=== PATIENT | female | born 2000 | race Caucasian/White ===

== ENCOUNTER 2025-03-21 06:09 | Emergency (ER) | payer MEDICAID ==
[~2025-03-21] VITALS: Ht 165.1 cm; Wt 65.0 kg
[2025-03-21 06:28] VITALS: TEMP 98.1; O2SAT 99
[2025-03-21 07:30] LABS: CREATININE 0.94 MG/DL (0.40-0.90); PRO BRAIN NATRIURETIC PEPTIDE 34 PG/ML (0-125); TOTAL CARBON DIOXIDE 27.4 MMOL/L (24-32); eCRCL 83 ML/MIN; eGFR 73 ML/MIN
[2025-03-21] MEDS: normal saline 1000ml 1,000 ML IV ONE (07:31)
[2025-03-21 07:49] LABS: MEAN PLATELET VOLUME 8.4 FL (7.4-10.4); RED CELL DISTRIBUTION WIDTH 12.9 % (11.5-14.5)
[2025-03-21 07:56] VITALS: BP 112/58; PULSE 55; RESP 9
[2025-03-21 08:02] LABS: URINE HCG NEGATIVE (NEG)
[2025-03-21 08:08] LABS: URINE AMPHETAMINE SCREEN NEGATIVE (Neg); URINE BARBITUATE SCREEN NEGATIVE (Neg); URINE BENZODIAZEPINES SCREEN NEGATIVE (Neg); URINE CANNABINOID SCREEN POSITIVE (Neg); URINE COCAINE SCREEN NEGATIVE (Neg); URINE METHADONE SCREEN POSITIVE (Neg); URINE OPIATE SCREEN NEGATIVE (Neg); URINE PHENCYCLIDINE SCREEN NEGATIVE (Neg)
[2025-03-21 08:14] LABS: LEUKOCYTE ESTERASE ,URINE LARGE (Neg); NITRITES, URINE NEGATIVE (Neg); OCCULT BLOOD,URINE NEGATIVE (Neg)
--- NOTE | 2025-03-21 08:14 | Physician Documentation ---
History of Present Illness General Chief Complaint: Abdominal Pain w/vomiting Stated Complaint: VOMITING Time Seen by MD: 07:43 Mode of Arrival: Ambulatory History of Present Illness Initial Comments The patient is a 24-year-old female with a history of seizures diagnosed in [place] where she moved from recently. She reports that her insurance transfers not complete and she is not currently taking her regular medications, which consist of lamotrigine and clonazepam. She is not certain of the doses. She reports that she had a seizure last night. Medication Reconciliation Allergies: Coded Allergies: No Known Allergies (Unverified , 03/21/25) Review of Systems ROS Constitutional: Denies chills, fatigue, fever, weight gain or weight loss. HEENT: Denies hearing loss, sinus pressure or visual changes. Respiratory: Denies cough, shortness of breath or wheezing. Cardiovascular: Denies chest pain, pain while walking (claudication), edema or palpitations. Gastrointestinal: Denies abdominal pain, blood in stool, constipation, diarrhea, heartburn, loss of appetite, nausea or vomiting. Genitourinary: Denies painful urination (dysuria), excessive amount of urine (polyuria) or urinary frequency. Metabolic/Endocrine: Denies cold intolerance, heat intolerance, excessive thirst (polydipsia) or excessive hunger (polyphagia). Neurological: Seizures and panic attacks. Psychiatric: Denies anxiety or depression. Integumentary: Denies breast discharge, breast lump, hives, mole change(s), rash or skin lesion. Musculoskeletal: Denies back pain, joint pain, joint swelling or neck pain. Hematologic: Denies easily bleeding, easily bruises, lymphedema or issues with blood clots. Immunologic: Denies food allergies or seasonal allergies. Physical Exam Physical Exam Vital Signs: Temperature: 98.1, Heart Rate: 55, Respiratory Rate: 9, BP: 112/58, Pulse Oximetry: 99, Weight: 65.000 Oxygen Flow Rate: 0 Physical Exam Physical Exam Vitals and nursing note reviewed. Constitutional: General: Patient is awake, alert, oriented x 4 in no acute distress and well appearing. Speech is clear and lucid. Appearance: Normal appearance. Patient is not ill-appearing, toxic-appearing or diaphoretic. HENT: Head: Normocephalic and atraumatic. Mouth/Throat: Mouth: Mucous membranes are moist. Pharynx: Oropharynx is clear. Eyes: General: No scleral icterus. Extraocular Movements: Extraocular movements intact. Pupils: Pupils are equal, round, and reactive to light. Neck: Supple, no Kernig or Brudzinski sign. Cardiovascular: Rate and Rhythm: Normal rate and regular rhythm. Heart sounds: No murmur heard. Pulmonary: Effort: No respiratory distress. Breath sounds: No wheezing, rhonchi or rales. Abdominal: General: There is no distension. Palpations: There is no fluid wave, hepatomegaly or mass. Tenderness: There is no abdominal tenderness. There is no guarding. Musculoskeletal: General: No swelling or deformity. Skin: Coloration: Skin is not jaundiced. Findings: No erythema or rash. Neurological: Mental Status: Patient is alert. Progress Results/Orders Results/Orders Orders - JOSE CAGLE MD Normal Saline 1000ml (0.9% Sodium Chlori (03/21/25 07:30) Urinalysis, Cult If Indicated (03/21/25 07:27) Completed Orders - JOSE CAGLE MD Lorazepam Inj (Ativan Inj) (03/21/25 07:30) Medications Received in ER Medications (Trade) Dose Ordered Sig/Fernandez Route PRN Reason Start Time Stop Time Status Last Admin Dose Admin Sodium Chloride 1,000 ml @ 1,000 mls/hr ONCE ONCE IV 03/21/25 07:30 03/21/25 08:29 03/21/25 07:31 1,000 MLS/HR (Ativan inj) 1 mg ONCE ONCE IV 03/21/25 07:30 03/21/25 07:31 DC 03/21/25 07:33 1 MG Vital Signs 03/21/25 03/21/25 03/21/25 03/21/25 06:28 07:15 07:33 07:56 Temp 98.1 Pulse 74 55 Resp 22 16 9 B/P (MAP) 101/49 112/58 (76) Pulse Ox 99 O2 Flow Rate 0 Laboratory Tests Test 03/21/25 06:31 03/21/25 07:32 03/21/25 07:45 White Blood Count 7.5 Red Blood Count 4.30 Hemoglobin 13.7 Hematocrit 39.8 Mean Corpuscular Volume 92.4 Mean Corpuscular Hemoglobin 31.8 H Mean Corpuscular Hemoglobin Concent 34.4 Red Cell Distribution Width 12.9 Platelet Count 248 Mean Platelet Volume 8.4 Neutrophils (%) (Auto) 73.0 Lymphocytes (%) (Auto) 18.8 L Monocytes (%) (Auto) 5.7 Eosinophils (%) (Auto) 2.3 Basophils (%) (Auto) 0.2 Neutrophils # (Auto) 5.5 Lymphocytes # (Auto) 1.4 Monocytes # (Auto) 0.4 Eosinophils # (Auto) 0.2 Basophils # (Auto) 0.0 CBC Comment Sodium Level 137 Potassium Level 3.8 Chloride Level 104 Carbon Dioxide Level 27.4 Anion Gap 6 L Blood Urea Nitrogen 9 Creatinine 0.94 H Estimated GFR/1.73 m2 73 BUN/Creatinine Ratio 9.6 L Glucose Level 123 H Calcium Level 8.7 Total Bilirubin 0.2 Aspartate Amino Transf (AST/SGOT) 19 Alanine Aminotransferase (ALT/SGPT) 25 Alkaline Phosphatase 146 H Troponin I High Sensitivity < 4 L Troponin I High Sens Percent Delta Troponin I Hi Sens Absolute Change Pro-B-Type Natriuretic Peptide 34 Total Protein 7.2 Albumin 3.7 Globulin 3.5 Albumin/Globulin Ratio 1.1 Lipase 23 Chemistry Comments Urine HCG, Qualitative Negative Urine Comment Drug Screen Comment Medical Decision Making Findings This patient reports that she has been taking clonazepam for several years PRN and lamotrigine for about two months. I am going to prescribe lamotrigine 25 mg b.i.d. and clonazepam 0.5 mg, 10 tablets. I have encouraged her to establish care locally. Departure Disposition: HOME / SELF CARE / HOMELESS Impression: Primary Impression: Medication refill Condition: Stable Additional Instructions: It is important to see your doctor or primary care provider. Emergency care may be incomplete without proper follow-up. Symptoms sometimes change or new symptoms might arise after you leave the emergency department. It is important that you call your doctor if you become worse in any way, or return to the emergency department. You are strongly urged to follow-up with your physician to assure complete and thorough care. Please call your doctor's office today, and informed them that you were seen in the emergency department, and that you need to be seen immediately for close follow-up. If you do not have a primary care doctor we encourage you to proactively seek a local physician for close follow-up. Consider local clinics, free clinics, or local [facility]. Prior to discharge we spoke at length concerning symptoms that would merit reevaluation, but please return to the emergency department for any symptoms that are concerning to you, and we will be happy to continue your evaluation and treatment. Please note you can always return to the emergency department if you are having difficulty coordinating close follow-up. If medications were prescribed, you should fill them at your local pharmacy immediately and take only as prescribed. Bring your new medications to your doctors follow-up visit to discuss any changes that would be necessary. Please check [facility] [employer] for any results you did not receive in the Emergency Department: often we are unable to get all your tests back before you leave, and these tests need to be reviewed by your PCP and yourself. You can also call Medical Records if you are unable to access the internet to see [facility]. Return to the emergency department immediately for worsening chest pain, difficulty breathing, sweating, or other concerning emergent symptoms. Referrals: NO PRIMARY CARE PROVIDER (PCP) Prescriptions Clonazepam (Clonazepam) 0.5 Mg Tablet 1 TABLET PO BID, #15 TABLET 0 Refills Prov: JOSE CAGLE MD 03/21/25 Lamotrigine (Lamotrigine ER) 50 Mg Tab.er.24 1 TAB PO DAILY for 30 Days, #30 TAB 0 Refills Prov: JOSE CAGLE MD 03/21/25 Education Educated: Patient Educated regarding: diagnosis, treatment, need for follow up Signature Scribe Signature: . Attestation: . JOSE CAGLE MD Mar 21, 2025 08:13
[2025-03-21 08:21] LABS: UA COLLECTION TYPE CLN CATCH MIDSTREAM
[2025-03-21 08:22] LABS: SQUAMOUS EPITHELIAL CELL,UR FEW /LPF (FEW)
[2025-03-21] MEDS ORDERED: CLON-565 PO (08:23)
[2025-03-21] MEDS ORDERED: LAMO50TA3 PO (08:23)
--- NOTE | 2025-03-21 13:07 | ELECTROCARDIOGRAPH REPORT ---
[facility] Test Date: 2025-03-21 Test Time: 06:49:10 Pat Name: CASPER KELLOGG Department: EMERGENCY ROOM Room: Gender: F [employer]: KENDELL : 2000 Requested By: JOSE CAGLE Order Number: [id number] Reading MD: Measurements Intervals [place] Rate: 79 P: 47 OK: 141 QRS: 66 QRSD: 80 T: 52 QT: 460 QTc: 528 Interpretive Statements Sinus rhythm RSR' in V1 or V2, probably normal variant Prolonged QT interval Please click the below link to view image of tracing.
== END 2025-03-21 08:37 | disposition home or self-care (01) ==
LOC: ER 06:09
DX: R56.9 Unspecified convulsions (principal); Z76.0 Encounter for issue of repeat prescription; R06.02 Shortness of breath; Z79.899 Other long term (current) drug therapy
CPT/HCPCS: 36415; 80053; 80305; 81001; 81025; 83690; 83880; 84484; 85025; 87088; 93005; 96361; 96374; 99284; J2060; J7030

== ENCOUNTER 2025-04-07 10:07 | Emergency (ER) | payer MEDICAID ==
[~2025-04-07] VITALS: Ht 152.4 cm; Wt 59.1 kg
[~2025-04-07 10:07] MED LIST: CLON-565 PO; LAMO50TA3 PO
[2025-04-07 10:08] VITALS: BP 105/69; PULSE 71; O2SAT 98
--- NOTE | 2025-04-07 10:36 | Physician Documentation ---
History of Present Illness ~ Chief Complaint: Anxiety Stated Complaint: ANXIETY Time Seen by MD: 10:21 HPI 24-year-old female presents to the ED with a complaint of anxiety. She says she is out of her clonazepam parents states she is also a methadone patient.. Was seen here in the ED recently and prescribed methadone. She states she is from [place] has not establish with health insurance Denies any HI or SI She also reports recreationally using nitrous oxide last night Day of Onset: Apr 07, 2025 Medication Reconciliation Allergies: Coded Allergies: No Known Allergies (Unverified , 04/07/25) Scheduled Clonazepam (Clonazepam), 1 TABLET PO BID Lamotrigine (Lamotrigine ER), 1 TAB PO DAILY Scheduled PRN Clonazepam (Klonopin), 1 TAB PO ONCE PRN for anxiety Review of Systems All Other Systems at this time: Reviewed and Negative ROS As stated above in the HPI, otherwise all systems are reviewed and negative. Physical Exam Vital Signs: Temperature: 98.6, Heart Rate: 71, Respiratory Rate: 18, BP: 105/69, Pulse Oximetry: 98, Weight: 59.090 Oxygen Flow Rate: 0 Physical Exam General: Alert, no apparent distress. Neurologic: Oriented x4. Psychiatric: Anxious appearing Skin: Normal color, warm and dry. No edema, no ecchymosis. Progress Results/Orders Results/Orders Completed Orders - SCOOBY SANDOVAL [employer] Diazepam Inj (Valium Inj) (04/07/25 10:30) Clonidine Tablet (Catapres Tablet) (04/07/25 10:50) Drug Screen, Urine (04/07/25 11:05) Medications Received in ER Medications (Trade) Dose Ordered Sig/Fernandez Route PRN Reason Start Time Stop Time Status Last Admin Dose Admin (Catapres tablet) 0.1 mg ONCE ONCE PO 04/07/25 10:50 04/07/25 10:51 DC 04/07/25 11:32 0.1 MG Vital Signs 04/07/25 04/07/25 04/07/25 10:08 10:47 11:36 Temp 98.6 98.6 Pulse 71 Resp 18 16 B/P (MAP) 105/69 Pulse Ox 98 O2 Flow Rate 0 Laboratory Tests Test 04/07/25 10:18 Urine Opiates Screen Negative Urine Methadone Screen Positive Urine Fentanyl Screen Negative Urine Barbiturates Screen Negative Urine Phencyclidine Screen Negative Urine Amphetamines Screen Negative Urine Benzodiazepines Screen Negative Urine Cocaine Screen Negative Urine Cannabinoids Screen Positive Drug Screen Comment Medical Decision Making Findings This 24-year-old female receive an IM injection of Valium reported improved symptoms I also gave her some clonidine as I suspect there may be an element of opiate withdrawal in her presentation today. Establish with the care provider in order to obtain ongoing prescription of clonazepam. Provided her with the appropriate resources including the local clinics who are accepting patient Differential Dx:Considerations: Include: Alcohol abuse, Anxiety, Bipolar disorder, Conversion disorder, Depression, Encephaloathy, Homicidal, Panic d isorder, Personality disorder, Schizophrenia, Substance abuse, Suicidal, Other Departure Disposition: HOME / SELF CARE / HOMELESS Impression: Primary Impression: Anxiety Condition: Stable Discharge Instructions: Panic Attack Additional Instructions: you currently have Medical insurance and are able to establish care with local clinics police utilize the resources that I provided to today Referrals: NO PRIMARY CARE PROVIDER (PCP) Prescriptions Clonazepam (Klonopin) 0.5 Mg Tablet 1 TAB PO ONCE PRN for anxiety for 1 Day, #1 TAB 0 Refills Prov: SCOOBY SANDOVAL NP 04/07/25 Education Educated: Patient Educated regarding: diagnosis Signature Scribe Signature: f Attestation: Scribed for Scooby Sandoval Shoder Filler by Scooby Leiva NP . 04/07/25 18:40 SCOOBY SANDOVAL NP Apr 07, 2025 10:36
[2025-04-07 10:47] VITALS: RESP 16
[2025-04-07] MEDS: diazepam inj 5 MG/ML inj. IM ONE (10:47)
[2025-04-07] MEDS ORDERED: CLON-850 PO (11:21)
[2025-04-07 11:36] VITALS: TEMP 98.6
[2025-04-07 11:54] LABS: URINE AMPHETAMINE SCREEN NEGATIVE (Neg); URINE BARBITUATE SCREEN NEGATIVE (Neg); URINE BENZODIAZEPINES SCREEN NEGATIVE (Neg); URINE CANNABINOID SCREEN POSITIVE (Neg); URINE COCAINE SCREEN NEGATIVE (Neg); URINE METHADONE SCREEN POSITIVE (Neg); URINE OPIATE SCREEN NEGATIVE (Neg); URINE PHENCYCLIDINE SCREEN NEGATIVE (Neg)
[2025-04-08] MEDS ORDERED: HYDR-3717 PO (11:55)
== END 2025-04-07 11:41 | disposition home or self-care (01) ==
LOC: ER 10:08
DX: F41.9 Anxiety disorder, unspecified (principal); Z79.899 Other long term (current) drug therapy
CPT/HCPCS: 80305; 96372; 99283; J3360

== ENCOUNTER 2025-04-08 10:26 | Emergency (ER) | payer MEDICAID ==
[~2025-04-08] VITALS: Ht 152.4 cm; Wt 61.0 kg
[~2025-04-08 10:26] MED LIST changes: +CLON-850 PO
--- NOTE | 2025-04-08 10:46 | Physician Documentation ---
History of Present Illness ~ Chief Complaint: Anxiety Stated Complaint: RECHECK Time Seen by MD: 10:39 HPI presents with restlessness and panic after using whippets. She denies any chest pain or shortness of breath. Medication Reconciliation Allergies: Coded Allergies: No Known Allergies (Unverified , 04/08/25) Scheduled Clonazepam (Clonazepam), 1 TABLET PO BID Hydroxyzine Hcl* (Atarax*), 1 TAB PO Q12H Lamotrigine (Lamotrigine ER), 1 TAB PO DAILY Scheduled PRN Clonazepam (Klonopin), 1 TAB PO ONCE PRN for anxiety Review of Systems All Other Systems at this time: Reviewed and Negative Constitutional: Denies: fever Respiratory: Denies: cough, shortness of breath Cardiovascular: Denies: chest pain Gastrointestinal: Denies: abdominal pain, nausea, vomiting Physical Exam Vital Signs: Temperature: 97.7, Source: Temporal, Heart Rate: 84, Respiratory Rate: 24, BP: 108/70, Pulse Oximetry: 99, Weight: 61.000 Oxygen Flow Rate: 0 Physical Exam anxious, purposeful shaking head atraumatic neck no jvd neuro awake alert oriented intact speech, intact strength, gait chestbreathing comfortably no distress skin warm well perfused psych good judgement and insight no si or hi Progress Results/Orders Results/Orders Completed Orders - OREN TOPETE MD Diazepam Tablet (Valium Tablet) (04/08/25 11:40) Vital Signs 04/08/25 04/08/25 04/08/25 10:28 11:45 12:46 Temp 97.7 97.9 Pulse 84 79 Resp 24 18 17 B/P (MAP) 108/70 119/72 Pulse Ox 99 99 O2 Flow Rate 0 Departure Disposition: 01 HOME / SELF CARE / HOMELESS Impression: Primary Impression: Anxiety attack Additional Impression Text Barriers to care substance use disorder This is a patient presenting for anxiety. She has multiple reasons to be anxious including the of her sibling by suicide few months ago. She is also using lipids as well as has history of substance use disorder and feels like she is withdrawing from fentanyl. She is also on methadone in his hoping to transition to Suboxone. Her exam today is not concerning for any acute findi ngs nor suicidal ideation. Discharge Instructions: Panic Attack Referrals: NO PRIMARY CARE PROVIDER (PCP) Prescriptions Hydroxyzine Hcl* (Atarax*) 10 Mg Tablet 1 TAB PO Q12H for anxiety for 30 Days, #60 TAB Prov: OREN TOPETE MD 04/08/25 Signature Scribe Signature: doreen Attestation: OREN Dutton MD Apr 08, 2025 10:46
[2025-04-08] MEDS ORDERED: HYDR-3717 PO (11:55)
[2025-04-08 12:46] VITALS: BP 119/72; PULSE 79; RESP 17; TEMP 97.9; O2SAT 99
== END 2025-04-08 12:49 | disposition home or self-care (01) ==
LOC: ER 10:26
DX: F41.0 Panic disorder [episodic paroxysmal anxiety] (principal)
CPT/HCPCS: 99283

== ENCOUNTER 2025-04-10 14:59 | Emergency (ER) | payer MEDICAID ==
[~2025-04-10] VITALS: Ht 152.4 cm; Wt 120.0 kg
[~2025-04-10 14:59] MED LIST changes: +HYDR-3717 PO
[2025-04-10 15:16] VITALS: BP 121/56; PULSE 73; RESP 18; TEMP 97.7; O2SAT 98
--- NOTE | 2025-04-10 15:28 | Physician Documentation ---
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 Medication Reconciliation Allergies: Coded Allergies: No Known Allergies (Unverified , 04/10/25) Scheduled Clonazepam (Clonazepam), 1 TABLET PO BID Hydroxyzine Hcl* (Atarax*), 1 TAB PO Q12H Lamotrigine (Lamotrigine ER), 1 TAB PO DAILY Scheduled PRN Clonazepam (Klonopin), 1 TAB PO ONCE PRN for anxiety Past Medical History Past Medical History: Anxiety Review of Systems ROS As stated above in the HPI, otherwise all systems are reviewed and negative. Physical Exam Vital Signs: Temperature: 97.7, Source: Temporal, Heart Rate: 73, Respiratory Rate: 18, BP: 121/56, Pulse Oximetry: 98, Weight: 120.000 Physical Exam VITALS: Reviewed and as above. GENERAL: Alert, nontoxic appearing, no apparent distress. RESPIRATORY: No increased work of breathing, no respiratory distress, speaking in full clear sentences PSYCH: Anxious appearing, stating no SI or HI Progress Results/Orders Results/Orders Vital Signs 04/10/25 15:16 Temp 97.7 Pulse 73 Resp 18 B/P (MAP) 121/56 Pulse Ox 98 Medical Decision Making Findings MSE performed in triage and patient returned to ED lobby by nursing staff to await available ED room Differential Dx:Considerations: Include: Alcohol abuse, Anxiety, Bipolar disorder, Conversion disorder, Depression, Homicidal, Panic disorder, Personality disorder, Schizophrenia, Substance abuse, Suicidal Departure Disposition: LEFT AWOL/ELOPED Impression: Primary Impression: Anxiety Referrals: NO PRIMARY CARE PROVIDER (PCP) Signature Scribe Signature: No Scribe Attestation: The note accurately reflects work and decisions made by me.RIAN Fermin 04/11/25 11:17 PIA MACHADO Apr 10, 2025 15:28
== END 2025-04-10 16:44 | disposition left against medical advice (07) ==
LOC: ER 14:59
DX: F41.9 Anxiety disorder, unspecified (principal)
CPT/HCPCS: 99281; 99282